=== PATIENT | female | born 1990 | race African-American/Black ===

== ENCOUNTER 2020-07-15 15:27 | Emergency (ER) | payer SELFPAY ==
[~2020-07-15] VITALS: Ht 162.6 cm; Wt 57.7 kg
[2020-07-15 15:37] VITALS: TEMP 98.1
[2020-07-15 17:20] VITALS: BP 116/61; PULSE 66
== END 2020-07-15 17:22 | disposition home or self-care (01) ==
LOC: COL.ER 15:27
DX: S16.1XXA Strain of muscle, fascia and tendon at neck level, initial encounter (principal); S70.02XA Contusion of left hip, initial encounter; Z88.1 Allergy status to other antibiotic agents; V89.2XXA Person injured in unspecified motor-vehicle accident, traffic, initial encounter